=== PATIENT | male | born 1955 | race Caucasian/White ===

== ENCOUNTER 2018-08-18 07:50 | Day surgery (SDC) | payer BC, MEDICAID ==
[~2018-08-18] VITALS: Ht 177.8 cm; Wt 73.6 kg
[2018-08-18 08:08] LABS: BASOPHILS 0.7 % (0-2); EOSINOPHILS 7.7 % (0-7); HEMATOCRIT 31.2 % (42.0-54.0); HEMOGLOBIN 10.7 g/dL (13.5-17.5); IMMATURE GRANULOCYTES 0.6 % (0-5); LYMPHOCYTES 25.6 % (15-50); MCH 30.6 pg (26.0-34.0); MCHC 34.3 g/dL (31.0-37.0); MCV 89.1 fL (80.0-100.0); MEAN PLATELET VOLUME 8.4 fL (7.4-10.4); NEUTROPHILS 57.4 % (40-80); PLATELET COUNT 230 10x3/uL (130-400); RDW 14.2 % (11.5-14.5)
[2018-08-18 08:25] LABS: INR 1.03 (0.85-1.17)
[2018-08-18 08:29] LABS: ANION GAP 14.7 mmol/L (8-16); CALCIUM 8.7 mg/dL (8.5-10.1); CARBON DIOXIDE 27.1 mmol/L (21.0-32.0); CREATININE - SERUM 11.8 mg/dL (0.6-1.3); POTASSIUM - SERUM 3.8 mmol/L (3.5-5.1)
[2018-08-18] MEDS ORDERED: AMOXICILLIN500 M1 PO (09:09)
[2018-08-18] MEDS ORDERED: PRED FORTE5 ML (09:10)
[2018-08-18] MEDS ORDERED: COZAAR50 MG PO (09:10)
[2018-08-18] MEDS ORDERED: LOPRESSOR25 MG PO (09:11)
[2018-08-18] MEDS ORDERED: ALBUTEROL SULF8.5 GM (09:12)
[2018-08-18 09:23] VITALS: BP 154/72; Ht 177.8 cm; Wt 73.6 kg
[2018-08-18] MEDS ORDERED: HYDROCODON-ACE1 EAC7 PO (11:34)
--- NOTE | 2018-08-18 13:00 | NUR ---
PATIENT STATES THAT HE HAS NO ONE AT HOME, LIVES ALONE AND DOESN'T HAVE ANYONE THAT CAN HELP HIM. HAS TO SUPERVISOR FILLING AND PACKING TO PERITONEAL DIALYSIS TONIGHT AND HAS TO GET UP 3 FLIGHTS OF STAIRS TO GET INTO APARTMENT. STATES "I'LL JUST GET THERE AND SEE IF ONE OF MY NEIGHBORS CAN HELP ME. THEY PROBABLY CAN." STATES IS RIDING SCAT BUS. CALL PLACED TO DR VEE REGARDING THIS. DR VEE REQUESTS CALL BE PLACED TO RENAL SERVICE AND SEE IF RENAL MD BREWING DIRECTOR WILL BE WILLING TO ADMIT PATIENT FOR OVERNIGHT OBSERVATION. SOLE TURK APN FOR RENAL SERVICE PAGED
--- NOTE | 2018-08-18 13:10 | NUR ---
PATIENT STATES HE JUST HUNG UP PHONE FROM SPEAKING WITH HIS NEPHEW AND HE NOW HAS HIS NEPHEW THAT CAN MEET HIM AT HIS APARTMENT AFTER THE SCAT BUS TAKES HIM HOME AND MAKE SURE HE CAN GET INTO HIS APARTMENT AND NEPHEW CAN ALSO HELP HIM GET HOOKED UP TO PD TONIGHT. PATIENT WISHES TO BE DISCHARGED AND DOES NOT WANT TO BE ADMITTED.
--- NOTE | 2018-08-18 13:50 | NUR ---
PATIENT AMBULATING AROUND ROOM WITHOUT DIZZINESS OR UNSTEADINESS. ASSISTED PATIENT TO DRESS IN PERSONAL CLOTHING. DISCHARGE INSTRUCTIONS REVIEWED WITH PATIENT, DISCHARGED [place]IA AMBUL[place] [facility] [place]
--- NOTE | 2018-08-22 13:47 | OP ---
PATIENT NAME: CHARLY GONZALEZ MEDICAL RECORD: [id number] :53 LOCATION:[facility] ADMISSION DATE: SURGEON: GEORGES VEE MD DATE OF OPERATION: 08/18/2018 PREOPERATIVE DIAGNOSES: Swollen right arm and non-maturing right proximal radial artery to cephalic vein arteriovenous fistula and chronic thrombosis of the axillary vein, dependence on peritoneal dialysis and end-stage renal disease. POSTOPERATIVE DIAGNOSES: Swollen right arm and non-maturing right proximal radial artery to cephalic vein arteriovenous fistula and chronic thrombosis of the axillary vein, dependence on peritoneal dialysis and end-stage renal disease. OPERATION PERFORMED: Right arm ultrasound examination and AV fistulogram followed by open ligation of AV fistula of right arm. SURGEON: Georges Vee MD ANESTHESIA: Regional nerve block and general per LMA by SHRUB PLANTER. REFERRING PHYSICIAN: Matilde Mendez MD PREOPERATIVE NOTE: Mr. Gonzalez is a 62-year-old white male patient, on chronic hemodialysis, who has had 2 fistula attempts in the right arm, which had been unsuccessful. He has a functioning proximal radial artery to cephalic vein fistula, but it basically stopped just above the antecubital space and he has not responded to noninvasive attempts to help it mature. I recently did a fistulogram on him and found a stenosis of the mid cephalic vein, which I dilated, but also noted there was a myriad of small vessels from the cephalic which diverted blood to the basilic system and it was my thinking that it was probably not going to be a useful access. At any rate, he was brought to the operating room today in order to repeat another fistulogram and ultrasound to better evaluate the venous anatomy and determine if there have been any changes since his last contrast study and possibly implant a graft if not creating a brachial artery to basilic vein AV fistula or even ligating the fistula. The swelling of the left arm is significant, only moderately debilitating. DESCRIPTION OF PROCEDURE: Under general anesthesia and with the nerve block in place, the patient was placed on the operating table in the right upper extremity was prepped and draped in a sterile manner. I examined the arm with color flow duplex B-mode ultrasound and saw that the fistula was large and patent with several outflow veins in the proximal forearm, but there was very little development of the cephalic vein in the upper arm. I accessed the fistula with micropuncture technique and performed a fistulogram and followed contrast through to the subclavian. I found that there were a myriad of collateral veins in the upper arm, none of which were likely to have her mature into a usable fistula and that the axillary vein fairly distal was thrombosed and there was slow filling of the subclavian vein. The cephalic arch did appear to be patent. I realized that the patient needed to have the fistula ligated to control his edema and that he is not going to have a satisfactory AV fistula or AV graft in the right arm. I first made a transverse incision in the antecubital space and OPERATIVE REPORT [id number] CHARLY GONZALEZ exposed the large runoff to the cephalic vein and this was bluntly dissected and encircled with silk ties and doubly ligated. The fistula continued to flow and this required yet another transverse incision placed below and parallel to the original one below the antecubital space and this was also subsequently extended in a hockey-stick shape down into the forearm further small flap raised. The mass of arterialized pulsating veins was carefully dissected and the venous outflows all ligated doubly with a 2-0 silk and a few clips. Eventually, all fistula flow was controlled and there was a persistence of good arterial flow into the forearm and hand. There was good pulsatile high resistance normal flow Doppler signals from the ulnar artery and radial artery at the wrist. The patient's wound was closed with interrupted inverted 3-0 Vicryl and then running intracuticular 4-0 Stratafix and sealed with Dermabond glue and dressed with Maxorb Ag, Tegaderm, and Cavilon skin prep. The patient was awakened and taken to the recovery room. The patient will be discharged to home today and return to see me in my office next week. He is to leave the original dressing intact. He will continue his same medications and his same dialysis prescription with home peritoneal. When the wound was closed, the 2 parallel incisions was a concern to me, but the bridge of intervening skin appears to be adequately vascularized. Blood loss during the operation was about 10 cc, none replaced. All sponges, instruments and needles were accounted for. No drain was used and no surgical specimen was submitted for histopathology. The patient is given a prescription for 10 tablets of Volin 5/325 one p.o. every 4 hours p.r.n. pain. TRANSINT:[id number] Voice Confirmation ID: [id number] DOCUMENT ID: [id number] GEORGES VEE MD at 1347 CC: MATILDE MENDEZ MD [id number] DICTATION DATE: 08/18/18 1157 COMMODITY BUYER: 08/18/18 1309 [facility] 08/18/18 [id number] [place] [address]
== END 2018-08-18 14:00 | disposition home or self-care (01) ==
LOC: D.OPS 07:50
PROVIDERS: Surgery; ATTEND Internal Medicine Nephrology
DX: T82.898A Other specified complication of vascular prosthetic devices, implants and grafts, initial encounter (principal)

== ENCOUNTER 2020-06-27 06:40 | Day surgery (SDC) | payer MEDICARE ==
[2020-06-25 13:00] LABS: ANION GAP 12.1 mmol/L (8-16); CALCIUM 7.9 mg/dL (8.5-10.1); CARBON DIOXIDE 29.3 mmol/L (21.0-32.0); CREATININE - SERUM 6.4 mg/dL (0.6-1.3); EOSINOPHILS 9.8 % (0-7); HEMATOCRIT 33.1 % (42.0-54.0); HEMOGLOBIN 10.1 g/dL (13.5-17.5); IMMATURE GRANULOCYTES 0.4 % (0-5); INR 1.09 (0.85-1.17); LYMPHOCYTE ABS# 2.13 10x3/uL (1.32-3.57); LYMPHOCYTES 29.8 % (15-50); MCH 28.3 pg (26.0-34.0); MCHC 30.5 g/dL (31.0-37.0); MCV 92.7 fL (80.0-100.0); MEAN PLATELET VOLUME 9.2 fL (7.4-10.4); MONOCYTES 8.5 % (2-11); NEUTROPHILS 50.5 % (40-80); PLATELET COUNT 332 10x3/uL (130-400); POTASSIUM - SERUM 4.4 mmol/L (3.5-5.1); RBC 3.57 10x6/uL (4.20-6.10); RDW 16.4 % (11.5-14.5); WBC 7.1 10x3/uL (4.8-10.8)
[~2020-06-27] VITALS: Ht 177.8 cm; Wt 71.2 kg
[~2020-06-27 06:40] MED LIST: ACETAMINOPHEN325 MG PO; ALBUTEROL SULF8.5 GM INH; AMOXICILLIN500 M1 PO; ASPIRIN325 MG PO; CALCIUM 600 +1 EAC3 PO; CLARITIN 10 MG10 MG PO; COLACE100 MG PO; COREG 3.1253.125 MG PO; COREG6.25 MG PO; COZAAR50 MG PO; DULCOLAX10 MG/SUPP RC; FLOMAX0.4 MG PO; FOLIC ACID1 MG PO; HEPARIN SOD5000 U/ML SC; HYDROCODON-ACE1 EAC7 PO; IPRAT-ALBUT 0.5-3 ML UPD; LIPITOR80 MG PO; LOPRESSOR25 MG PO; MIRALAX17 GM PO; NITROQUICK0.4 MG SL; OXYBUTYNIN CHLOR5 MG PO; PEPCID AC20 MG PO; PRED FORTE5 ML; PRENAVITE1 TAB PO; PROCRIT/EP10000 UNIT SQ; RENVELA800 MG PO; ROXICODONE30 MG PO; VITAMIN B-1100 M1 PO; ZANAFLEX4 MG PO; ZOFRAN ODT4 MG/UDTAB PO
[2020-06-27 09:08] VITALS: Ht 177.8 cm; Wt 71.2 kg
--- NOTE | 2020-06-27 21:14 | NUR ---
CALLED RENAL SENIOR CLINICAL STUDY MANAGER TO LET KNOW PT MAY NEED DIALYSIS OR NEED DC EARLY
--- NOTE | 2020-06-27 21:15 | NUR ---
RECEIVED FROM OP, PT IS A&OX4, PD CATH DRESSING CDI/LAVF-DRESSING CDI, DENIES ANY NEEDS AT THIS TIME, BED IS LOW, SRX2, CALL LIGHT IN REACH, WILL CONTINUE PLAN OF CARE
[2020-06-28 01:28] VITALS: BP 135/73
--- NOTE | 2020-06-28 02:55 | NUR ---
I have reviewed this patient and I concur with the Shift Assessment completed by the Licensed Practical Nurse today this shift.
[2020-06-28 05:29] VITALS: BP 143/84
--- NOTE | 2020-06-28 07:37 | NUR ---
0700 RECEIVED REPORT. ASSUMED CARE OF PATIENT. RESTING WELL WITH EYES CLOSED, EASILY AROUSED. FAINT THRILL TO NEW LEFT AV FISTULA, GOOD BRUIT. PATIENT PROVIDED INSTRUCTIONS PER . AWAITING FOR NEPHROLOGY THIS AM TO GET PATIENT SCHEDULED FOR DIALYSIS HERE TODAY PRIOR TO DISCHARGE PT MISSED HIS DIALYSIS APPT AT [facility] AT 0640 THIS AM. CALL LIGHT WITHIN REACH. JELLO AND LEMON JENA SODA PROVIDED. CALL LIGHT WITHIN REACH. PHONE AND GLASSES PROVIDED TO PATIENT FROM HIS PERSONAL BELONGING BAG. NO DISTRESS.
[2020-06-28 08:00] VITALS: BP 147/77
--- NOTE | 2020-06-28 08:26 | NUR ---
MEDICATED WITH TYLENOL FOR HEADACHE AT THIS TIME.
--- NOTE | 2020-06-28 11:13 | NUR ---
CALLED DIALYSIS AND SPOKE TO DELROY, SHE IS READY FOR PATIENT AND WILL CALL TRANSPORT TO BRING PT DOWN TO DIALYSIS SUITE. PATIENT INFORMED.
--- NOTE | 2020-06-28 11:43 | NUR ---
TRANSPORT HERE TO TAKE PATIENT TO DIALYSIS VIA WHEELCHAIR. NO DISTRESS UPON LEAVING THE UNIT.
[2020-06-28 14:31] LABS: ANION GAP 21.2 mmol/L (8-16); CALCIUM 8.4 mg/dL (8.5-10.1); CARBON DIOXIDE 19.6 mmol/L (21.0-32.0); CREATININE - SERUM 8.2 mg/dL (0.6-1.3); POTASSIUM - SERUM 4.8 mmol/L (3.5-5.1)
--- NOTE | 2020-06-28 16:07 | NUR ---
REMAINS OFF UNIT IN DIALYSIS AT THIS TIME.
--- NOTE | 2020-06-28 17:57 | NUR ---
CALLED TO CHECK ON PATIENT IN DIALYSIS, PATIENT TX NOW COMPLETE, ONE UNIT OF FLUID REMOVED. HEMOSPLIT WORKING WELL NOW AFTER USE OF ACTIVASE. PATIENT BACK TO UNIT FOR DISCHARGE SOON.
--- NOTE | 2020-06-28 18:31 | NUR ---
DISCHARGE INSTRUCTIONS PROVIDED TO PATIENT. PATIENT VERBALIZED ALL UNDERSTANDING OF ALL INSTRUCTIONS. ICE PROVIDED UPON REQUEST AT THIS TIME WHILE WAITING FOR HIS BROTHER TO ARRIVE. NO DISTRESS.
--- NOTE | 2020-06-28 20:16 | NUR ---
RECEIVED PATIENT WITH A 500CC BAG OF NORMAL SALINE (CLAMPED OFF) HOOKED DIRECTLY TO VENOUS PORT OF DIALYSIS CATHETER. SPOKE WITH MIGUEL ANGEL HARMAN RN FROM FLOOR AND SHE STATED SHE RECEIVED PATIENT WITH THIS IN PLACE THIS AM AND MADE SURE IT WAS CLAMPED OFF BUT DID NOT INITIATE IT. VENOUS PORT WILL BARELY DRAW BLOOD AND VERY SLUGGISH TO FLUSH. INITIATED TREATMENT, CATHETER PORT PRESSURE TOO HIGH TO RUN TREATMENT GREATER THAN 30 MINUTES. SHAAN MARTE APN NOTIFIED AND TREAMTMENT ENDED AND ACTIVASE 2.0 ML INSTILLED INTO BOTH PORTS TO DWELL FOR 1 HOUR THEN AFTER HOUR, ACTIVASE REMOVED AND SECOND TREATMENT INITIATED.
--- NOTE | 2020-07-08 18:26 | OP ---
PATIENT NAME: CHARLY GONZALEZ MEDICAL RECORD: [id number] :53 LOCATION:[facility] ADMISSION DATE: SURGEON: GEORGES VEE MD DATE OF OPERATION: 06/27/2020 REFERRING PHYSICIAN: Matilde Argueta MD PREOPERATIVE DIAGNOSES: End-stage renal disease and dependence on hemodialysis and prior peritonitis necessitating removal of the previous peritoneal dialysis catheter. POSTOPERATIVE DIAGNOSES: End-stage renal disease and dependence on hemodialysis and prior peritonitis necessitating removal of the previous peritoneal dialysis catheter. OPERATION PERFORMED: Laparoscopic implantation of new peritoneal dialysis catheter with an exit in the left upper quadrant and then also creation of a Lucila type left brachial artery to basilic vein AV fistula. SURGEON: Georges Vee MD ANESTHESIA: General per BICYCLE DESIGNER. HISTORY: Mr. Gonzalez is a 64-year-old white male patient referred to me by Dr. Argueta. He has a history of having had a peritoneal dialysis catheter removed due to peritonitis and sufficient time has elapsed, he is brought back to the operating room today as an outpatient to implant a new peritoneal dialysis catheter and also to create a left arm AV fistula as he has no long-term hemodialysis access. DESCRIPTION OF PROCEDURE: Under general anesthetic, the patient was placed in supine position, prepped and draped in a sterile manner. The left arm was examined with ultrasound and I found that there was really very little vasculature or veins to used for the AV fistula and I elected to go ahead with a II stage brachial artery to translocate basilic vein type fistula beginning today with creation of a Lucila brachial artery basilic vein fistula. I made a transverse incision and exposed these vessels. They were controlled with Silastic loops and treated with topical papaverine. Tributaries were divided between ligatures of Vicryl. The vein was distally ligated, divided and bevelled, flushed with heparinized saline and hydrostatically dilated and generally prepared for anastomosis. The artery was occluded and opened and flushed proximally and distally with heparinized saline and then anastomosis performed with running 7-0 Prolene. When that was completed, the occluding loops and clamps were released. The suture line was hemostatic and there was excellent flow in the new fistula. Blood loss during the procedure was trivial and unreplaced. Sponges, instruments and needles were accounted for. No drain was used. That incision was closed in layers with interrupted 3-0 Vicryl. It was irrigated with saline and infiltrated with 0.25% Marcaine without epinephrine. Skin was closed with running intracuticular 4-0 Stratafix and Dermabond glue and a dressing of Maxorb AG, Tegaderm, Cavilon skin prep was applied. Next, the patient's abdomen was prepped and draped in a sterile manner. I started on the patient's left side and identified a proper site in the left upper quadrant for a catheter exit and a site to the left of the umbilicus for OPERATIVE REPORT [id number] CHARLY GONZALEZ positioning of the deep cuff. I chose a Merit dual cuff coil flex neck classic catheter. A vertical incision was made a couple of centimeters lateral or to the left of the umbilicus in the midline. The anterior rectus sheath was exposed and a pursestring suture of 0 Vicryl was placed and the rectus muscle infiltrated with 0.25% Marcaine with epinephrine. I inserted a 5-mm laparoscopic port in the left upper quadrant and obtained a pneumoperitoneum with carbon dioxide and then inserted a 5-mm 30-degree laparoscope. I noted that the patient had basically a very flat omentum spread out smoothly over the bowel to which it was adherent underneath with filmy adhesions I presume from his previous appendicitis. I did not think that an omentectomy was required as there was easy access to the pelvis and no anterior adhesions. The catheter was inserted through an introducer, through the pursestring suture, and through an intrarectus preperitoneal tunnel. The catheter was positioned appropriately in the pelvis with the blue line positioned anteriorly. The Dacron felt cuff was placed deep to the fascia immediately beneath the rectus sheath and the pursestring suture tied. The catheter was flushed with saline. It was then placed in the subcutaneous tunnel and brought out through the previously identified exit site. The catheter was then attached to a transverse set and 1000 cc of saline was allowed to run into the abdomen. The bag was placed on the floor and fluid was siphoned down and there was free flow of fluid without any evidence of obstruction and good drainage. The PD catheter was then heparin locked. The ports were removed and the wounds irrigated with saline and then closed with interrupted inverted 3-0 Vicryl and running intracuticular 4-0 Stratafix and Dermabond glue. The incisions were dressed with Maxorb AG, Tegaderm, and Cavilon skin prep. The catheter at the exit site was dressed with a Biopatch and a Tegaderm. It was then coiled and covered with a 4 x 4 bordered gauze. The patient was awakened from his anesthetic and in stable condition taken to the recovery room. PLAN: The patient will remain overnight tonight in observation due to the lateness of the hour. The patient may require dialysis here in the hospital tomorrow or possibly if he is discharged early enough if he is able to go he could dialyze at [facility]. He is given a prescription for [place] 5/325 and an appointment to return to see me in my office in 10 days. TRANSINT:[id number] Voice Confirmation ID: [id number] DOCUMENT ID: [id number] GEORGES VEE MD at 1826 CC: MATILDE ARGUETA MD [id number] DICTATION DATE: 07/07/20 1715 INSECTICIDE EXPERT: 07/07/20 2247 [facility] 06/28/20 [id number] [place] [address]
== END 2020-06-28 18:35 | disposition home or self-care (01) ==
LOC: D.OPS 06:40 → D.M2 20:58 → D.OPS 06-28 18:35
PROVIDERS: Internal Medicine Nephrology; Surgery; ATTEND Internal Medicine
DX: N18.6 End stage renal disease (principal); Z99.2 Dependence on renal dialysis; I10 Essential (primary) hypertension; J45.909 Unspecified asthma, uncomplicated; E07.9 Disorder of thyroid, unspecified

== ENCOUNTER 2020-08-08 05:58 | Day surgery (SDC) | payer MEDICARE ==
[~2020-08-08] VITALS: Ht 177.8 cm; Wt 77.1 kg
[2020-08-08 06:25] LABS: BASOPHILS 0.6 % (0-2); EOSINOPHILS 9.1 % (0-7); HEMATOCRIT 32.4 % (42.0-54.0); HEMOGLOBIN 10.8 g/dL (13.5-17.5); LYMPHOCYTES 26.8 % (15-50); MCH 27.9 pg (26.0-34.0); MCHC 33.2 g/dL (31.0-37.0); MEAN PLATELET VOLUME 7.3 fL (7.4-10.4); MONOCYTES 7.5 % (2-11); PLATELET COUNT 348 10x3/uL (130-400); RBC 3.86 10x6/uL (4.20-6.10); RDW 16.2 % (11.5-14.5); WBC 7.6 10x3/uL (4.8-10.8)
[2020-08-08 06:41] LABS: ANION GAP 17.7 mmol/L (8-16); CALCIUM 7.3 mg/dL (8.5-10.1); CARBON DIOXIDE 24.8 mmol/L (21.0-32.0); CREATININE - SERUM 10.8 mg/dL (0.6-1.3); POTASSIUM - SERUM 3.5 mmol/L (3.5-5.1)
[2020-08-08] MEDS ORDERED: PHOSLO667 MG PO (07:02)
[2020-08-08] MEDS ORDERED: COZAAR50 MG PO (07:06)
[2020-08-08] MEDS ORDERED: CLONIDINE HCL0.1 MG PO (07:07)
[2020-08-08] MEDS ORDERED: LASIX80 MG PO (07:08)
[2020-08-08 07:09] LABS: INR 1.1 (0.85-1.17); PROTIME 13.1 SECONDS (11.6-15.0)
[2020-08-08 07:25] VITALS: Ht 177.8 cm; Wt 77.1 kg
[2020-08-08] MEDS ORDERED: HYDROCODON-ACE1 EAC7 PO (11:00)
--- NOTE | 2020-08-08 15:02 | NUR ---
1450 CLONIDINE GIVEN FOR SLIGHTLY ELEVATED B/P
--- NOTE | 2020-08-08 18:00 | NUR ---
1800 PT SAT UP AND ASSISTED TO BATHROOM SAT ON TOILET TO URINAT. PT URIANTED. BACK TO BED AND ASSISTED TO BED BACAME NAUSEATED, PHENERGAN ORDERED PO AGAINST RX
--- NOTE | 2020-08-08 18:24 | NUR ---
0 MEDICATED FOR NAUSEA.
--- NOTE | 2020-08-12 09:25 | OP ---
PATIENT NAME: CHARLY GONZALEZ MEDICAL RECORD: [id number] :51 LOCATION:[facility] ADMISSION DATE: SURGEON: GEORGES VEE MD DATE OF OPERATION: 08/08/2020 REFERRED BY: Dr. Mendez. PREOPERATIVE DIAGNOSES: End-stage renal disease, dependence on hemodialysis and mechanical complication of existing Lucila left arm brachiobasilic arteriovenous fistula. POSTOPERATIVE DIAGNOSES: End-stage renal disease, dependence on hemodialysis and mechanical complication of existing Lucila left arm brachiobasilic arteriovenous fistula. OPERATION PERFORMED: Revision of AV fistula without thrombectomy. ANESTHESIA: Per AIR HOLE DRILLER, general anesthesia with LMA plus regional nerve block. PREOPERATIVE NOTE: Mr. Gonzalez is a 64-year-old white male patient who is I believe is 2 to 3 weeks status post creation of a Lucila AV fistula in the left arm between the brachial artery and the basilic vein. That fistula has remained open and basilic veins dilating nicely, though unfortunately it is too deep in the upper 3/4 of the arm for safe regular percutaneous access and he needs to have this now translocated and as planned or expected after his last procedure. He has returned to the operating room during this postop period for revision. DESCRIPTION OF PROCEDURE: Under anesthesia in supine position, the patient was prepped and draped in sterile manner. The patient's arm was examined with duplex ultrasound and I confirmed that the basilic vein was in excellent condition with relatively few tributaries in perforating or communicating veins. I then made a long incision from the axilla down to the antecubital space connecting with the original incision and I dissected the vein from the axilla almost to the arterial anastomosis down to the site of inflammation and fat necrosis surrounding the vein just adjacent to that anastomosis. The vein was treated repeatedly with topical papaverine and it was eventually divided and ligated as far distally as possible and the stump doubly ligated with a 2-0 silk. The brachial artery was exposed through a somewhat higher incision just above the antecubital space and controlled with Silastic loops. The vein was flushed with heparinized saline and then placed in a very superficial subcutaneous tunnel, which curved laterally from the axilla and then came back to the medial distal incision. This was done with a Pratik tunneler after marking the vein to maintain our orientation. The vein was then again slightly bevelled and flushed with heparinized saline. The artery was occluded and opened, flushed proximally and distally with heparinized saline and the anastomosis end-to-side, end of vein to side of artery was performed with running 7-0 Prolene. When completed and the occluding loops and clamps were released, there was no bleeding from the suture line and excellent pulsation and thrill developed immediately. Doppler and duplex ultrasound examination with color technique demonstrated the patency of the ulnar and the radial arteries at the wrist without much effect when the graft was opened or closed. The wounds were irrigated with saline and hemostasis was really quite excellent. The wound was closed with interrupted inverted 3-0 Vicryl sutures and running intracuticular 4-0 Stratafix and Dermabond glue. It was dressed with Maxorb AG, OPERATIVE REPORT [id number] CHARLY GONZALEZ and Cavilon skin prep. The patient was awakened and in stable condition taken to the recovery room. PLAN: The patient to go home today and plan to return to see me in my office within the next 7 to 14 days. I expect he will be able to start dialysis with his new fistula in 1 month, and very soon thereafter, perhaps a week or two, he can have his tunneled dialysis catheter removed. He is to resume or continue his same home diet and all of the same medications. I am giving him a prescription for hydrocodone 5/325 twenty tablets, which he may take one every 4 hours p.r.n. as needed for pain. The patient has a history of nausea and vomiting with opioid analgesics; however, he did take hydrocodone after his first operation a few weeks ago and I believe he will be able to do that this time as well and just in case I have left him with a prescription for Phenergan 25 mg tablets, he can take 1 p.o. every 4 hours p.r.n. nausea. TRANSINT:[id number] Voice Confirmation ID: [id number] DOCUMENT ID: [id number] GEORGES VEE MD at 0925 CC: MATILDE MENDEZ MD [id number] DICTATION DATE: 08/08/20 1121 OIL FIELD PUMPER: 08/08/20 1358 [facility] 08/08/20 [id number] [place] [address]
== END 2020-08-08 18:20 | disposition home or self-care (01) ==
LOC: D.OPS 05:58
PROVIDERS: ATTEND Surgery
DX: N18.6 End stage renal disease (principal); Z99.2 Dependence on renal dialysis; T82.590A Other mechanical complication of surgically created arteriovenous fistula, initial encounter; I10 Essential (primary) hypertension; E07.9 Disorder of thyroid, unspecified; J45.909 Unspecified asthma, uncomplicated